=== PATIENT | male | born 1985 | race Caucasian/White ===

== ENCOUNTER 2022-11-26 12:45 | Emergency (ER) | payer MEDICAID ==
[2022-11-26] MEDS: Take Home: Cephalexin 500 MG Cap, 6 Cap Pack PO ONE (13:14)
== END 2022-11-26 13:17 | disposition home or self-care (01) ==
LOC: VM.ED 12:45
DX: L03.116 Cellulitis of left lower limb (principal); L03.115 Cellulitis of right lower limb; L25.9 Unspecified contact dermatitis, unspecified cause
CPT/HCPCS: 99283; A9270